=== PATIENT | male | born 1960 | race Two or more races ===

== ENCOUNTER 2025-03-22 18:24 | Emergency (ER) | payer SELFPAY ==
[2025-03-22 18:35] VITALS: BMI 26.4
[2025-03-22] MEDS ORDERED: diphenhydrAMINE HCL 25 MG CAPSULE (FP) PO ONE (20:13)
[2025-03-22] MEDS ORDERED: FLUORESCEIN NA 1 EA STRIP ONE ×2 (20:13→21:53)
[2025-03-22] MEDS ORDERED: methylPREDNISolone NA SUCC 125 MG/2 ML VIAL ONE (20:14)
[2025-03-22] MEDS ORDERED: FAMOTIDINE 20 MG/50 ML IVPB 20 MG/50 ML MG IVPB ONE (20:14)
[2025-03-22] MEDS ORDERED: TETRACAINE 0.5% OPHTH SOLN 2 ML BOTTLE ONE (20:14)
[2025-03-22] MEDS: methylPREDNISolone NA SUCC 125 MG/2 ML VIAL IVPB ONE (20:35)
[2025-03-22] MEDS: FAMOTIDINE 20 MG/50 ML IVPB 20 MG/50 ML MG IVPB ONE (20:35)
[2025-03-22] MEDS: FLUORESCEIN NA 1 EA STRIP OD ONE (20:36)
[2025-03-22] MEDS: TETRACAINE 0.5% OPHTH SOLN 2 ML BOTTLE OD ONE (20:36)
[2025-03-22 21:07] LABS: HCV DIAGNOSTIC IN-HOUSE W/RFLX NON-REACTIVE (NONREACTIVE); HIV INTERPRETATION NEGATIVE (NEGATIVE)
[2025-03-22 22:56] VITALS: BP 126/78; PULSE 58; RESP 16; TEMP 98.2
== END 2025-03-22 23:02 | disposition home or self-care (01) ==
LOC: JER 18:24
PROC: 3E033GC Introduction of Other Therapeutic Substance into Peripheral Vein, Percutaneous Approach (ICD-10-PCS; principal; 2025-03-22)
PROC: 3E033GC Introduction of Other Therapeutic Substance into Peripheral Vein, Percutaneous Approach (ICD-10-PCS; 2025-03-22)
PROC: 3E033GC Introduction of Other Therapeutic Substance into Peripheral Vein, Percutaneous Approach (ICD-10-PCS; 2025-03-22)
DX: H10.211 Acute toxic conjunctivitis, right eye (principal)
CPT/HCPCS: 36415; 86803; 87389; 99284-25